=== PATIENT | female | born 1985 | race Caucasian/White ===

== ENCOUNTER 2017-01-15 12:41 | Emergency (ER) | payer BC ==
[~2017-01-15] VITALS: Ht 162.6 cm; Wt 77.0 kg
[~2017-01-15 12:41] MED LIST: NORC7.5T PO; PRENCAP10 PO
[2017-01-15 12:56] VITALS: BP 120/90; PULSE 92; RESP 16; TEMP 98.8; O2SAT 99
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
== END 2017-01-15 13:28 | disposition home or self-care (01) ==
LOC: PHED 12:41
DX: S06.0X1A Concussion with loss of consciousness of 30 minutes or less, initial encounter (principal); S00.01XA Abrasion of scalp, initial encounter; V89.9XXA Person injured in unspecified vehicle accident, initial encounter
CPT/HCPCS: 99282

== ENCOUNTER 2017-10-09 05:39 | Inpatient (IN) ==
--- NOTE | 2017-10-08 12:22 | MH ---
cc: Bassam Camacho MD DATE OF ADMISSION: 10/09/2017 CHIEF COMPLAINT: Patient admission for repeat section at term. HISTORY OF PRESENT ILLNESS: The patient is a 32-year-old female. She is 2, para 1-0-0-1, estimated date of confinement is 10/16/2017. She is 39 weeks gestation for scheduled elective repeat section. The patient also requests tubal ligation at the time. OBSTETRICAL HISTORY: Unremarkable. course was uncomplicated. The patient's GBS status is negative. One-hour Glucola was slightly elevated with a normal follow at 3-hour glucose tolerance test. PAST MEDICAL HISTORY: Denies any systemic or chronic disease. ALLERGIES: SHE HAS NO KNOWN DRUG ALLERGIES. PAST SURGICAL HISTORY: Status post primary section for breech in 2013, delivery of a healthy female infant. MEDICATIONS: The patient takes vitamins only. SOCIAL HISTORY: Denies any use of tobacco, alcohol or illicit substances. She is , employed, full-time. PHYSICAL EXAMINATION: This is a well-appearing, well-nourished female, in no acute distress. VITAL SIGNS: Stable. Blood pressure 100/64, pulse and respiratory rate are normal. heart tones in the 140s. HEENT: Shows no adenopathy or thyromegaly. NECK: Supple, full range of motion. Pupils are equally round and reactive to light. Sclerae are white. Extraocular eye movements are intact. LUNGS: Clear in all berg. CARDIAC: Regular rhythm without murmur, rub or gallop. ABDOMEN: Gravid, full-term 41 weeks fundal height. PELVIC: Deferred. The patient has no signs or symptoms of labor. The patient's membranes are intact. EXTREMITIES: Symmetrical, full range of motion. There is no cyanosis, clubbing, or edema. ASSESSMENT: The patient is at 39 weeks intrauterine gestation for elective repeat section with tubal ligation. Uncomplicated course. Bassam Camacho MD [facility]/DL , 12:03 PM , 12:21 PM
[2017-10-09] MEDS ORDERED: Citric Acid/Sodium Citrate Liq 30 ML UDC PO SCH (06:00)
[2017-10-09 06:34] LABS: Baso % (Auto) 0.7 % (0.0-2.0); Eos # (Auto) 0.1 th/mm3 (0.0-0.4); Eos % (Auto) 1.7 % (0.0-4.0); Hematocrit 37.1 % (35.0-46.0); Hemoglobin 12.6 gm/dL (11.6-15.3); Lymph # (Auto) 1.9 th/mm3 (1.0-4.8); Lymph % (Auto) 31.8 % (9.0-44.0); Mean Corpuscular HGB Conc 33.8 % (32.0-36.0); Mean Corpuscular Hemoglobin 29.1 pg (27.0-34.0); Mean Corpuscular Volume 86.1 fL (80.0-100.0); Mean Platelet Volume 10.5 fL (7.0-11.0); Mono # (Auto) 0.4 th/mm3 (0.0-0.9); Mono % (Auto) 6.7 % (0.0-8.0); Neut # (Auto) 3.6 th/mm3 (1.8-7.7); Neut % (Auto) 59.1 % (16.0-70.0); Platelet Count 216 th/mm3 (150-450); Red Blood Count 4.31 mil/mm3 (4.00-5.30); Red Cell Distribution Width 14.4 % (11.6-17.2); White Blood Count 6.1 th/mm3 (4.0-11.0)
[2017-10-09] MEDS: ceFAZolin 2 GM Premix Inj 2 GM/50 ML PIGGYBACK IV.SIG SCH ×4 (07:13→23:03)
[2017-10-09] MEDS ORDERED: Morphine Sulfate PF Inj 5 MG/10 ML Ampul ONE (07:14)
[2017-10-09] MEDS ORDERED: fentaNYL Citrate Inj 100 MCG/2 ML Ampul ONE (07:14)
[2017-10-09] MEDS ORDERED: Acetaminophen 325 MG Tablet PO PRN (07:18)
[2017-10-09] MEDS ORDERED: Simethicone 80 MG Chew Tablet PO PRN (07:18)
[2017-10-09] MEDS ORDERED: Ibuprofen 600 MG Tablet PO PRN (07:18)
[2017-10-09] MEDS ORDERED: Oxytocin 30 Units/500ml Premix 30 UNITS/500 ML BAG IV.SIG ONE (07:18)
[2017-10-09 07:47] LABS: Bilirubin,Urine Negative (Negative); Clarity,Urine Hazy (Clear); Color,Urine Yellow (Yellw/Straw); Glucose,Urine (UA) Negative (Negative); Leukocyte Esterase,Urine Negative (Negative); Nitrite,Urine Negative (Negative); Specific Gravity,Urine 1.027 (1.002-1.035); Squamous Epithelial Cell,Urine 9 /hpf (0-5)
[2017-10-09 07:48] LABS: Amphetamine Screen,Urine Neg (Neg); Barbiturate Screen,Urine Neg (Neg); Cannabinoid Screen,Urine Neg (Neg); Cocaine Screen,Urine Neg (Neg)
[2017-10-09 07:49] LABS: Opiate Screen,Urine Neg (Neg)
--- NOTE | 2017-10-09 08:37 | P.OBDELI ---
Procedure Note Performed by: Bassam Camacho MD Procedure: Repeat Low Transverse Section (; elective sterilization) Indication for Delivery: Desired elective repeat Informed Consent Obtained: For anesthesia, For procedure Confirmed Correct: Patient, Procedure, Site, Time-out taken Anesthesia: Spinal Medication Prior to Procedure: As documented in eMAR Monitoring During Procedure: Blood pressure monitoring, gypsum block setter, doppler, Pulse oximetry Urinary Catheter: Inserted using sterile technique, To dependent drainage Sterile Preparation: Duraprep, In usual fashion Position: Supine with wedge to right side, Supine with safety belt applied - Operative Features Skin Incision: Pfannenstiel Uterine Incision: Low transverse w/knife / scissors Membranes Ruptured: Artificially Presentation: Occiput anterior Status of Infant: Viable, Cord blood, Umbilical cord, Nursery present Placenta Delivered: Intact Medications: Antibiotics, Oxytocin Estimated blood loss (mL): 650 Procedure Tolerated: Well Maternal Condition: Stable Baby Condition: Stable - Infant : Female Infant Delivery Date: 10/09/17 Weight: 3.26 kg Delivery of Infant: Uneventful score (1 min): 8 score (5 min): 9
[2017-10-09 08:46] VITALS: RESP 18
--- NOTE | 2017-10-09 09:00 | MP ---
cc: Bassam Camacho MD DATE OF OPERATION: 10/09/2017 PREOPERATIVE DIAGNOSES: Term intrauterine , previous section for elective repeat section and sterilization by tubal ligation. PROCEDURE: Repeat low transverse section, modified Blayne technique for tubal ligation, delivery of viable female . POSTOPERATIVE DIAGNOSIS: Term intrauterine , previous section for elective repeat section and sterilization by tubal ligation. SURGEON: Bassam Camacho MD ANESTHESIA: Spinal. ESTIMATED BLOOD LOSS: 650 mL. DRAINS: Garza to gravity. OPERATIVE FINDINGS: Female , nuchal cord x 1, Apgars were 8 at 1 minute and 9 at 5. Baby weighed 7 pounds 3 ounces. SPECIMENS: Surgical specimens included right and left fallopian tube segments. PROPHYLAXIS: The patient received Ancef 2 grams prophylactically. PROCEDURE DESCRIPTION: The patient was taken to the operating room in stable condition. Documented heart rate was category 1. The patient underwent spinal anesthetic without complication. She was carefully positioned, prepped and draped, Garza inserted by sterile technique and sequentials were placed on lower extremities for VTE prophylaxis. She had excellent pain control. Timeout was conducted and agreed with all present in the room. A previous Pfannenstiel incision was utilized using a #10 blade taking the incision through the skin down through the subcutaneous layer to the fascia, which was scored in the midline and extended laterally by sharp dissection cauterizing any active bleeding with the Bovie. The rectus fascia was from the muscle. Muscle in the midline. Peritoneum was identified and opened sharply without complication. The incision was extended to accommodate the bladder blade. A transverse incision was made in the lower uterine segment after opening the peritoneal layer transversely. Clear fluid was noted. The infant was delivered to the incision after reduction of the nuchal cord. Good tone and cry were noted. The had delayed cord clamping for 45 seconds. Cord was doubly clamped and cut and the infant was taken to [place] by the nursery staff. Cord sample was obtained for typing. The placenta was removed intact and sent for donation. The uterus was explored. There was no retained tissue. The lower uterine segment was examined. No active bleeding and the closure was made with a double layer closure, first as a running locking suture of 0 Monocryl, followed by a second imbricating suture of 0 Monocryl. A good result was noted. The fallopian tubes were then identified. No abnormality was noted. The mesentery was elevated. Bovie was used to open the mesentery and then using a suture of 2-0 plain tying the ends of the tube proximally and distally, allowing resection of the majority of the fallopian tube down to the ampullary portion. No active bleeding was noted. No hematoma. Both tubes were sent and labeled appropriately right and left. After completion of the tubal ligation, the uterus was returned to its normal anatomic position in the pelvis. The pelvis was irrigated, evacuation of all free fluid blood and clot was done. No active bleeding was noted. The full count was made and correct and then the peritoneum was then closed with a running suture of 2-0 Monocryl, followed by an imbricating suture of simple mattress suture of 2-0 Monocryl to approximate the lower muscle bellies at the level of the pyramidalis muscle. The fascia was then closed with 0 Vicryl in a simple running fashion with good result. The subcutaneous space was irrigated. Any active bleeding was cauterized and then the space was reapproximated with a running suture of 2-0 Monocryl and then stephen were used to close and reapproximate the skin edge. A dressing was applied. The final count was correct. The patient was stable and the infant was doing well in the nursery. MD MARCO Bass/JOHN PAUL , 08:41 AM , 08:59 AM
[2017-10-09] MEDS ORDERED: Naloxone Inj 0.4 MG/ML Vial IV.PUSH PRN (10:17)
[2017-10-09] MEDS ORDERED: Phenylephrine/NS 1000 MCG/10ML Syringe IV.PUSH ONE (12:00)
[2017-10-09] MEDS ORDERED: Ketorolac Inj 30 MG/ML (IVP) Vial IV.PUSH ONE (12:00)
[2017-10-09] MEDS ORDERED: Oxytocin 30 Units/500ml Premix 30 UNITS/500 ML BAG IV.SIG PRN (12:18)
[2017-10-09] MEDS ORDERED: ceFAZolin Inj 2,000 MG in Sodium Chlor 0.9% Inj 80 ML IV.SIG SCH (14:00)
[2017-10-09] MEDS: Ibuprofen 600 MG Tablet PO PRN (19:55)
[2017-10-10] MEDS: Ibuprofen 600 MG Tablet PO PRN ×4 (02:07→23:52)
[2017-10-10 05:26] LABS: Baso % (Auto) 0.4 % (0.0-2.0); Eos # (Auto) 0.1 th/mm3 (0.0-0.4); Eos % (Auto) 1.7 % (0.0-4.0); Hematocrit 31.4 % (35.0-46.0); Hemoglobin 10.7 gm/dL (11.6-15.3); Lymph # (Auto) 2.3 th/mm3 (1.0-4.8); Lymph % (Auto) 29.2 % (9.0-44.0); Mean Corpuscular HGB Conc 33.9 % (32.0-36.0); Mean Corpuscular Hemoglobin 29.4 pg (27.0-34.0); Mean Corpuscular Volume 86.9 fL (80.0-100.0); Mean Platelet Volume 10.3 fL (7.0-11.0); Mono # (Auto) 0.4 th/mm3 (0.0-0.9); Mono % (Auto) 5.7 % (0.0-8.0); Neut # (Auto) 4.9 th/mm3 (1.8-7.7); Platelet Count 177 th/mm3 (150-450); Red Blood Count 3.62 mil/mm3 (4.00-5.30); Red Cell Distribution Width 14.8 % (11.6-17.2); White Blood Count 7.8 th/mm3 (4.0-11.0)
--- NOTE | 2017-10-10 08:46 | P.PNOB ---
Subjective Post day: 1 Objective Vital Signs/I&O: Vital Signs 10/09/17 08:55 10/09/17 09:10 10/09/17 09:29 Temperature Pulse Rate 61 56 L 54 L Respiratory Rate Blood Pressure 123/78 128/69 128/69 10/09/17 09:40 10/09/17 09:53 10/09/17 11:00 Temperature Pulse Rate 54 L 53 L 54 L Respiratory Rate 18 Blood Pressure 133/78 125/73 140/73 10/09/17 16:44 10/09/17 20:00 10/09/17 23:26 Temperature 98.2 F 98.2 F 98.2 F Pulse Rate 70 60 64 Respiratory Rate Blood Pressure 119/78 122/79 101/60 10/10/17 03:48 10/10/17 07:57 Temperature 98.3 F Pulse Rate 67 59 L Respiratory Rate Blood Pressure 118/66 115/74 Intake & Output 10/09/17 10/10/17 10/10/17 18:59 06:59 18:59 Intake Total 100 / 100 50 / 50 Balance 100 / 100 50 / 50 Intake: IV 100 / 100 50 / 50 Ancef 2 GM Premix Inj 2 gm In 100 / 100 50 / 50 50 ml @ 100 mls/hr IV.SIG Q8H [facility] Rx#:[id number] Result Diagrams: 10/10/17 04:52 Objective Remarks: GENERAL: Well-nourished, well-developed patient. CARDIOVASCULAR: Regular rate and rhythm without murmurs, gallops, or rubs. RESPIRATORY: Breath sounds equal bilaterally. No accessory muscle use. ABDOMEN/GI: Abdomen soft, non-tender. BANDAGE DRY Fundus: Firm, non-tender at umbilicus. GENITOURINARY: Light to moderate bleeding. EXTREMITIES: No cyanosis or edema, non-tender, without signs of DVT. Medications and IVs: Active Medications Acetaminophen (Tylenol) 650 mg PO Q6H PRN PRN Reason: PAIN SCALE 1 TO 2 Citric Acid/Sodium Citrate (Sodium Citrate/Citric Acid Liq) 30 ml PO [employer] MANAGER [facility] Stop: 10/13/17 05:59 Last Admin: 10/09/17 07:09 Dose: 30 ml Diphenhydramine HCl (Benadryl) 50 mg PO Q6H PRN PRN Reason: MILD TO MODERATE ITCHING Stop: 10/10/17 10:16 Diphenhydramine HCl (Benadryl Inj) 25 mg IV.PUSH Q6H PRN PRN Reason: MILD TO MODERATE ITCHING Stop: 10/10/17 10:16 Diphtheria/Pertussis/Tetanus Vacc (Boostrix Vaccine Inj) 0.5 ml IM .ONCE ONE Stop: 10/10/17 16:01 Lactated Ringer's (Lr 1000 Ml Inj) 1,000 mls @ 150 mls/hr IV.CONT .Q6H40M [facility] Oxytocin (Pitocin 30 Units/Ns 500 Ml Premix) 30 units in 500 mls @ 100 mls/hr IV.SIG PRN PRN PRN Reason: Heavy bleeding Stop: 10/10/17 12:17 Measles/Mumps/Rubella Vaccine Live (M-M-R Ii Vaccine Inj) 0.5 ml SQ .ONCE ONE Stop: 10/10/17 16:01 Miscellaneous Information ([facility] 1 each OTHER UNSCH PRN PRN Reason: SEE LABEL COMMENTS Stop: 10/10/17 10:16 Miscellaneous Information ([facility] 1 each OTHER UNSCH PRN PRN Reason: SEE LABEL COMMENTS Stop: 10/10/17 10:16 Naloxone HCl (Narcan Inj) 0.4 mg IV.PUSH UNSCH PRN PRN Reason: SEE LABEL COMMENTS Stop: 10/10/17 10:16 Ondansetron HCl (Zofran Odt) 4 mg PO Q6H PRN PRN Reason: NAUSEA OR VOMITING Oxycodone/Acetaminophen (Percocet 5/325 Mg) 1 tab PO Q4H PRN PRN Reason: PAIN SCALE 3 TO 5 Last Admin: 10/10/17 02:09 Dose: 1 tab Oxycodone/Acetaminophen (Percocet 5/325 Mg) 2 tab PO Q4H PRN PRN Reason: PAIN SCALE 6 TO 10 Last Admin: 10/10/17 07:14 Dose: 2 tab Promethazine HCl (Phenergan Inj) 25 mg IM Q6H PRN PRN Reason: NAUSEA Last Admin: 10/09/17 11:36 Dose: 25 mg Simethicone (Mylicon Chew) 80 mg PO QID PRN PRN Reason: FLATULENCE Sodium Chloride (Ns Flush) 2 ml IV.FLUSH BID [place]MAN Sodium Chloride (Ns Flush) 2 ml IV.FLUSH PRN PRN PRN Reason: FLUSH AFTER USING IV ACCESS Assessment and Plan - Plan anticipate discharge POD 2
[2017-10-10] MEDS ORDERED: Measles/Mumps/Rubella Vaccine Inj 0.5 ML Vial SQ ONE (16:00)
[2017-10-10] MEDS ORDERED: Diphtheria/Tetanus/Pertussis Vaccine Inj 0.5 ML Syringe IM ONE (16:00)
[2017-10-11] MEDS: Ibuprofen 600 MG Tablet PO PRN (06:05)
--- NOTE | 2017-10-11 08:35 | P.PNOB ---
Subjective Post op day: 2 Interval history: doing well, pain well controlled, passing flatus Objective Vital Signs/I&O: Vital Signs 10/10/17 21:00 Temperature 98.2 F Pulse Rate 73 Respiratory Rate 18 Blood Pressure 116/75 Result Diagrams: 10/10/17 04:52 Objective Remarks: GENERAL: Well-nourished, well-developed patient. CARDIOVASCULAR: Regular rate and rhythm without murmurs, gallops, or rubs. RESPIRATORY: Breath sounds equal bilaterally. No accessory muscle use. ABDOMEN/GI: Abdomen soft, non-tender, bowel sounds present. Incision: Clean, dry and intact. stephen in place Fundus: Firm, non-tender at umbilicus. GENITOURINARY: Light to moderate bleeding. EXTREMITIES: No cyanosis or edema, non-tender, without signs of DVT. Medications and IVs: Active Medications Acetaminophen (Tylenol) 650 mg PO Q6H PRN PRN Reason: PAIN SCALE 1 TO 2 Citric Acid/Sodium Citrate (Sodium Citrate/Citric Acid Liq) 30 ml PO COLLOID M[employer] OPERATOR [facility] Stop: 10/13/17 05:59 Last Admin: 10/09/17 07:09 Dose: 30 ml Lactated Ringer's (Lr 1000 Ml Inj) 1,000 mls @ 150 mls/hr IV.CONT .Q6H40M [facility] Non-Formulary Medication (Pnv Cmb#95-Ferrous Fumarate-Fa []) 1 tab PO DAILY [facility] Ondansetron HCl (Zofran Odt) 4 mg PO Q6H PRN PRN Reason: NAUSEA OR VOMITING Oxycodone/Acetaminophen (Percocet 5/325 Mg) 1 tab PO Q4H PRN PRN Reason: PAIN SCALE 3 TO 5 Last Admin: 10/11/17 06:06 Dose: 1 tab Oxycodone/Acetaminophen (Percocet 5/325 Mg) 2 tab PO Q4H PRN PRN Reason: PAIN SCALE 6 TO 10 Last Admin: 10/10/17 17:34 Dose: 2 tab Promethazine HCl (Phenergan Inj) 25 mg IM Q6H PRN PRN Reason: NAUSEA Last Admin: 10/09/17 11:36 Dose: 25 mg Simethicone (Mylicon Chew) 80 mg PO QID PRN PRN Reason: FLATULENCE Sodium Chloride (Ns Flush) 2 ml IV.FLUSH BID [place]MAN Sodium Chloride (Ns Flush) 2 ml IV.FLUSH PRN PRN PRN Reason: FLUSH AFTER USING IV ACCESS Assessment and Plan - Plan doing well anticipate discharge POD 2 needs to f/u in office for staple removal
[2017-10-11 08:58] VITALS: BP 126/81; PULSE 68; TEMP 98.7
[2017-10-11] MEDS ORDERED: Non-Formulary Drug (Pnv Cmb#95-Ferrous Fumarate-Fa [Prenatal] 1 TAB) PO SCH (09:00)
== END 2017-10-11 11:30 | disposition home or self-care (01) ==
LOC: H2E 05:39 → H1EA 10:06 → UNDODISIN 10-10 15:00
PROVIDERS: ADMIT Obstetrics & Gynecology; ATTEND Obstetrics & Gynecology
DX: Z37.0 Single live birth; O34.211 Maternal care for low transverse scar from previous cesarean delivery; Z30.2 Encounter for sterilization; Z3A.39 39 weeks gestation of pregnancy